=== PATIENT | male | born 1965 | race Caucasian/White ===

== ENCOUNTER 2017-08-28 17:10 | Emergency (ER) | payer OTHER ==
[2017-08-28 18:01] LABS: Absolute Lymphocytes (CBC) 2.4 K/uL (0.7-4.9); Absolute Monocytes 1.1 K/uL (0.1-1.3); Absolute Neutrophil 5.4 K/uL (1.8-8.0); Basophils % 0.1 % (0-1.3); Eosinophils % 6.4 % (0-4.4); Hematocrit 46.5 % (39.6-49.0); Lymphocytes % 25.2 % (15.3-44.8); MCH 32.4 pg (27.0-35.0); MCV 91.2 fL (80-100); MPV 8.2 fL (7.6-11.3); Monocytes % 11.4 % (3.3-12.3)
[2017-08-28 18:11] LABS: Potassium 3.5 mEq/L (3.6-5.0)
[2017-08-28 18:17] LABS: Albumin 4.2 g/dL (3.2-5.5); Bilirubin Direct 0.1 mg/dL (0-0.2); Bilirubin Total 0.8 mg/dL (0.3-1.2); Protein, Total 7.4 g/dL (6.0-8.3)
[2017-08-28 18:22] LABS: Urine Blood NEGATIVE (NEG); Urine Glucose NEGATIVE (NEG); Urine Protein NEGATIVE (NEG); Urine Specific Gravity <1.005 (1.005-1.030)
[2017-08-28 18:40] LABS: Urine Bacteria <20 /HPF (NONE SEEN); Urine Culture Reflex Order NOT NEEDED; Urine RBC <5 /HPF (NONE SEEN)
[2017-08-28] MEDS ORDERED: ONDANSETRON 4 MG/2 ML VIAL ONE (18:40)
[2017-08-28] MEDS ORDERED: MORPHINE 4 MG/ML SYR ONE (18:40)
[2017-08-28] MEDS ORDERED: KETOROLAC 30 MG/ML INJ ONE (20:27)
--- NOTE | 2017-08-28 20:32 | RAD REPORT ---
EXAM DESCRIPTION: CT - Abdomen Pelvis W Contrast - 08/28/2017 8:14 pm CLINICAL HISTORY: Abdominal pain. Left lower quadrant pain x4 months COMPARISON: None. TECHNIQUE: Computed axial tomography of the abdomen and pelvis was obtained. 100 cc Isovue-300 is ad ministered intravenously. Oral contrast was given. All CT scans are performed using dose optimization technique as appropriate and may include automated exposure control or mA/KV adjustment according to patient size. FINDINGS: The liver has a mildly diminished attenuation consistent with fatty infiltration. Spleen, pancreas, and adrenals appear unremarkable. Small renal cysts are present The appendix is normal caliber. Diverticula stem from the colon. Slight stranding is present adjacent to the sigmoid colon The prostate gland is mildly enlarged. Small right inguinal hernia contains fat A small hiatal hernia is present IMPRESSION: Minimal sigmoid diverticulitis
--- NOTE | 2017-08-28 20:55 | ER ---
Nurse's Notes [facility] Name: Saravanan Summers Jr Age: 52 yrs Sex: Male : 1965 Arrival Date: 08/28/2017 Time: 17:10 Bed 20 Private MD: Diagnosis: Diverticulitis of large intestine without perforation or abscess without bleeding Presentation: 08/28 17:17 Presenting complaint: Patient states: LUQ pain intermittent for 4 months that has aj gotten worse recently. Patient reports bloating, and increased indigestion. Transition of care: patient was not received from another setting of care. Onset of symptoms was May 2017. Initial Sepsis Screen: Does the patient meet any 2 criteria? No. Patient's initial sepsis screen is negative. Does the patient have a suspected source of infection? No. Patient's initial sepsis screen is negative. Care prior to arrival: None. 17:17 Method Of Arrival: Ambulatory aj 17:17 Acuity: OMER 3 aj Triage Assessment: 17:18 General: Appears in no apparent distress. uncomfortable, Behavior is calm, cooperative, aj appropriate for age. Pain: Complains of pain in left upper quadrant Pain currently is 8 out of 10 on a pain scale. Neuro: Level of Consciousness is awake, alert, obeys commands, Oriented to person, place, time, situation, Appropriate for age. Respiratory: Airway is patent Trachea midline Respiratory effort is even, unlabored, Respiratory pattern is regular, symmetrical. GI: Abdomen is flat, Reports upper abdominal pain, indigestion, nausea. Derm: Skin is intact, is healthy with good turgor, Skin is pink, warm \\T\\ dry. normal. Historical: - Allergies: 17:18 No Known Allergies; aj - Home Meds: 17:18 None [Active]; aj - PMHx: 17:18 None; aj - PSHx: 17:18 None; aj - Immunization history:: Adult Immunizations up to date. - Social history:: Smoking status: Patient uses tobacco products, smokes one-half pack cigarettes per day. Screenin:19 Abuse screen: Denies threats or abuse. Denies injuries from another. Nutritional aj1 screening: No deficits noted. Tuberculosis screening: No symptoms or risk factors identified. 21:33 Fall Risk None identified. aj1 Assessment: 17:40 General: Appears in no apparent distress. uncomfortable, Behavior is calm, cooperative, aj1 appropriate for age. Pain: Complains of pain in left upper quadrant Pain does not radiate. Pain currently is 8 out of 10 on a pain scale. Neuro: Level of Consciousness is awake, alert, obeys commands, Oriented to person, place, time, situation, Speech is normal, Facial symmetry appears normal. Cardiovascular: Patient's skin is warm and dry. Respiratory: Airway is patent Respiratory effort is even, unlabored, Respiratory pattern is regular, symmetrical. GI: Abdomen is flat, non-distended, Bowel sounds present X 4 quads. Abd is soft X 4 quads Abdomen is tender to palpation in left upper quadrant Reports bloating, indigestion, black tarry stools Patient currently denies diarrhea, vomiting. : No signs and/or symptoms were reported regarding the genitourinary system. EENT: No signs and/or symptoms were reported regarding the EENT system. Derm: No signs and/or symptoms reported regarding the dermatologic system. Skin is pink, warm \\T\\ dry. normal. Musculoskeletal: No signs and/or symptoms reported regarding the musculoskeletal system. Circulation, motion, and sensation intact. 18:40 Reassessment: Patient appears in no apparent distress at this time. No changes from aj1 previously documented assessment. Patient and/or family updated on plan of care and expected duration. Pain level reassessed. Patient is alert, oriented x 3, equal unlabored respirations, skin warm/dry/pink. 19:30 Reassessment: Patient and/or family updated on plan of care and expected duration. Pain aj1 level reassessed. General: Appears in no apparent distress. uncomfortable, Behavior is calm, cooperative, appropriate for age. Pain: Complains of pain in left upper quadrant. Neuro: Level of Consciousness is awake, alert, obeys commands, Oriented to person, place, time, situation, Speech is normal, Facial symmetry appears normal. Cardiovascular: Patient's skin is warm and dry. Respiratory: Airway is patent Respiratory effort is even, unlabored, Respiratory pattern is regular, symmetrical. GI: Abdomen is flat, non-distended. : No signs and/or symptoms were reported regarding the genitourinary system. EENT: No signs and/or symptoms were reported regarding the EENT system. Derm: No signs and/or symptoms reported regarding the dermatologic system. Skin is pink, warm \\T\\ dry. normal. Musculoskeletal: No signs and/or symptoms reported regarding the musculoskeletal system. Circulation, motion, and sensation intact. 20:30 Reassessment: Patient states that he is still hurting. Notified JOSE Haro. Order aj1 recieved. 20:32 Reassessment: Patient appears in no apparent distress at this time. No changes from aj1 previously documented assessment. Patient and/or family updated on plan of care and expected duration. Pain level reassessed. Patient is alert, oriented x 3, equal unlabored respirations, skin warm/dry/pink. 21:31 Reassessment: Patient does not want to stay for IV antibiotics. Patient's comes aj1 out of the room and states "He's leaving right now, if you need to give him stuff he's about to just walk out" Patient states he will picking tech Rx and take that, he has a curfew and he is already an hour late so he needs to leave right now. Vital Signs: 17:18 BP 158 / 100; Pulse 88; Resp 20; Temp 97.8; Pulse Ox 99% on R/A; Weight 92.53 kg; aj Height 5 ft. 11 in. (180.34 cm); Pain 8/10; 18:19 BP 143 / 93; Pulse 64; Resp 18; Pulse Ox 94% on R/A; aj1 20:35 BP 141 / 93; Pulse 93; Resp 18; Pulse Ox 99% ; aj1 21:33 BP 137 / 92; Pulse 88; Resp 18; Pulse Ox 99% ; aj1 17:18 Body Mass Index 28.45 (92.53 kg, 180.34 cm) aj ED Course: 17:10 Patient arrived in ED. as 17:18 Triage completed. aj 17:18 Arm band placed on left wrist. Patient placed in an exam room, on a stretcher. aj 17:24 Jesus Garcia MD is Attending Physician. gs 17:36 Sharon Quick, MARLENE is Primary Nurse. aj1 17:38 Urine collected: clean catch specimen, clear. mh5 17:39 Patient has correct armband on for positive identification. Placed in gown. Bed in low mh5 position. Side rails up X 1. Adult w/ patient. Warm blanket given. Pulse ox on. NIBP on. 17:55 Inserted saline lock: 18 gauge in right antecubital area, using aseptic technique. aj1 Blood collected. 18:08 Urine Dipstick-Ancillary [facility] 18:08 Urine Dipstick--Ancillary (enter results) Sent[facility] 18:19 Evans Duque PA is PHCP. cp 18:19 Jesus Garcia MD is Attending Physician. cp 18:19 No provider procedures requiring assistance completed. aj1 20:11 Patient moved to NE via wheelchair. nj 20:14 CT completed. Patient tolerated procedure well. Patient moved back from NE. nj 20:14 CT Abd/Pelvis - W/Contrast: may give oral contrast In Process Unspecified. EDMS 20:54 Keith Baldwin MD is Referral Physician. cp 21:34 IV discontinued, intact, bleeding controlled, No redness/swelling at site. Pressure aj1 dressing applied. Administered Medications: 18:48 Drug: morphine 4 mg Route: IVP; Site: right antecubital; aj1 20:31 Follow up: Response: No adverse reaction aj1 18:48 Drug: Zofran 4 mg Route: IVP; Site: right antecubital; aj1 20:31 Follow up: Response: No adverse reaction aj1 20:30 Drug: TORadol 30 mg Route: IVP; Site: right antecubital; aj1 21:30 Follow up: Response: No adverse reaction aj1 21:27 Drug: Ciprofloxacin 500 mg Route: PO; aj1 21:30 Follow up: Response: No adverse reaction aj1 21:28 Drug: Tylenol #3 (300 mg-30 mg) 2 tabs Route: PO; aj1 21:31 Follow up: Response: No adverse reaction aj1 21:30 Not Given (Patient Refused): metroNIDAZOLE 500 mg 100 ml IVPB once over 30 mins aj1 21:30 Drug: Potassium Effervescent Tablet 25 mEq Route: PO; aj1 21:31 Follow up: Response: No adverse reaction aj1 Outcome: 20:54 Discharge ordered by . cp 21:34 Discharged to home ambulatory. aj1 21:34 Condition: stable 21:34 Discharge instructions given to patient, Instructed on discharge instructions, follow up and referral plans. no drinking with medication, no driving heavy equipment, medication usage, Demonstrated understanding of instructions, Prescriptions given X 4. 21:34 Patient left the ED. aj1 Signatures: Dispatcher [employer] Sharon Shelby RN RN aj1 Kellie Heller, Caryn Solano RN, Corey, PA PA cp Jordan, Nathan nj Martinez, Maria [facility] Jesus Garcia MD MD
--- NOTE | 2017-08-28 20:56 | EDPHYS ---
Physician Documentation [facility] Name: Saravanan Summers Jr Age: 52 yrs Sex: Male : 1965 Arrival Date: 08/28/2017 Time: 17:10 Bed 20 Private MD: ED Physician Jesus Garcia HPI: 08/28 18:30 This 52 yrs old Male presents to ER via Ambulatory with complaints of cp Abdominal Pain. 18:30 The patient presents with abdominal pain in the left upper quadrant. cp 18:30 Onset: The symptoms/episode began/occurred gradually. cp 18:30 The symptoms do not radiate. Associated signs and symptoms: Pertinent negatives: blood cp in stools, constipation, diarrhea, fever, testicular pain, vomiting. Historical: - Allergies: 17:18 No Known Allergies; aj - Home Meds: 17:18 None [Active]; aj - PMHx: 17:18 None; aj - PSHx: 17:18 None; aj - Immunization history:: Adult Immunizations up to date. - Social history:: Smoking status: Patient uses tobacco products, smokes one-half pack cigarettes per day. ROS: 18:40 Constitutional: Negative for body aches, chills, fever, poor PO intake. cp 18:40 Eyes: Negative for injury, pain, redness, and discharge. cp 18:40 ENT: Negative for drainage from ear(s), ear pain, sore throat, difficulty swallowing, difficulty handling secretions. 18:40 Cardiovascular: Negative for chest pain, edema, palpitations. 18:40 Respiratory: Negative for cough, shortness of breath, wheezing. 18:40 Abdomen/GI: Positive for abdominal pain, nausea, Negative for vomiting, diarrhea, constipation, anorexia, black/tarry stool, rectal bleeding. 18:40 Back: Negative for pain at rest, pain with movement, radiated pain. 18:40 Skin: Negative for cellulitis, rash. 18:40 Neuro: Negative for altered mental status, headache, weakness. 18:40 All other systems are negative. Exam: 18:45 Constitutional: The patient appears in no acute distress, alert, awake, cp non-diaphoretic, non-toxic, well developed, well nourished. 18:45 Head/Face: Normocephalic, atraumatic. Eyes: Pupils equal round and reactive to light, cp extra-ocular motions intact. Lids and lashes normal. Conjunctiva and sclera are non-icteric and not injected. Cornea within normal limits. Periorbital areas with no swelling, redness, or edema. ENT: Nares patent. No nasal discharge, no septal abnormalities noted. Tympanic membranes are normal and external auditory canals are clear. Oropharynx with no redness, swelling, or masses, exudates, or evidence of obstruction, uvula midline. Mucous membranes moist. Neck: Trachea midline, no thyromegaly or masses palpated, and no cervical lymphadenopathy. Supple, full range of motion without nuchal rigidity, or vertebral point tenderness. No Meningismus. Chest/axilla: Normal chest wall appearance and motion. Nontender with no deformity. No lesions are appreciated. 18:45 Cardiovascular: Rate: normal, Rhythm: regular, Edema: is not appreciated, JVD: is not appreciated. 18:45 Respiratory: the patient does not display signs of respiratory distress, Respirations: normal, no use of accessory muscles, no retractions, no splinting, no tachypnea, labored breathing, is not present, Breath sounds: are clear throughout, no decreased breath sounds, no stridor, no wheezing. 18:45 Abdomen/GI: Inspection: abdomen appears normal, Bowel sounds: active, all quadrants, Palpation: soft, in all quadrants, moderate abdominal tenderness, in the left upper quadrant, rebound tenderness, is not appreciated, voluntary guarding, is not appreciated, involuntary guarding, is not appreciated. 18:45 Back: pain, is absent, ROM is normal. 18:45 Skin: cellulitis, is not appreciated, no rash present. 18:45 Neuro: Orientation: to person, place \T\ time. Mentation: is normal, Cerebellar function: is grossly normal, Motor: moves all fours, strength is normal, Sensation: no obvious gross deficits. Vital Signs: 17:18 BP 158 / 100; Pulse 88; Resp 20; Temp 97.8; Pulse Ox 99% on R/A; Weight 92.53 kg; aj Height 5 ft. 11 in. (180.34 cm); Pain 8/10; 18:19 BP 143 / 93; Pulse 64; Resp 18; Pulse Ox 94% on R/A; aj1 20:35 BP 141 / 93; Pulse 93; Resp 18; Pulse Ox 99% ; aj1 21:33 BP 137 / 92; Pulse 88; Resp 18; Pulse Ox 99% ; aj1 17:18 Body Mass Index 28.45 (92.53 kg, 180.34 cm) aj MDM: 18:20 Patient medically screened. cp 19:00 Differential diagnosis: bowel obstruction, cholecystitis, Cholelithiasis, cp diverticulitis, pancreatitis, Pyelonephritis, Ureterolithiasis, urinary tract infection. 20:52 Data reviewed: vital signs, nurses notes, lab test result(s), radiologic studies, CT cp scan, and as a result, I will discharge patient. 20:52 Counseling: I had a detailed discussion with the patient and/or guardian regarding: the cp historical points, exam findings, and any diagnostic results supporting the discharge/admit diagnosis, lab results, radiology results, the need for outpatient follow up, a sales review clerk, to return to the emergency department if symptoms worsen or persist or if there are any questions or concerns that arise at home. 08/28 17:40 Order name: Urine Dipstick--Ancillary (enter results) ag 08/28 17:40 Order name: Urine Dipstick-Ancillary; Complete Time: 18:35 EDMS 08/28 17:41 Order name: Basic Metabolic Panel; Complete Time: 18:35 08/28 18:35 Interpretation: Normal except: K 3.5; GFR 78. 08/28 17:41 Order name: CBC with Diff; Complete Time: 18:35 08/28 20:25 Interpretation: Normal except: MCV 91.2; EOSINOPHIL % 6.4; EOSA 0.6. 08/28 17:41 Order name: Hepatic Function; Complete Time: 18:35 08/28 17:41 Order name: Lipase; Complete Time: 18:35 08/28 17:41 Order name: Urine Microscopic Only; Complete Time: 20:24 08/28 20:24 Interpretation: Reviewed. 08/28 18:36 Order name: CT Abd/Pelvis - W/Contrast: may give oral contrast; Complete Time: 20:39 cp 08/28 17:41 Order name: IV Saline Lock; Complete Time: 17:53 08/28 17:41 Order name: Labs collected and sent; Complete Time: 17:53 08/28 20:40 Order name: PO challenge; Complete Time: 21:30 cp Administered Medications: 18:48 Drug: morphine 4 mg Route: IVP; Site: right antecubital; aj1 20:31 Follow up: Response: No adverse reaction aj1 18:48 Drug: Zofran 4 mg Route: IVP; Site: right antecubital; aj1 20:31 Follow up: Response: No adverse reaction aj1 20:30 Drug: TORadol 30 mg Route: IVP; Site: right antecubital; aj1 21:30 Follow up: Response: No adverse reaction aj1 21:27 Drug: Ciprofloxacin 500 mg Route: PO; aj1 21:30 Follow up: Response: No adverse reaction aj1 21:28 Drug: Tylenol #3 (300 mg-30 mg) 2 tabs Route: PO; aj1 21:31 Follow up: Response: No adverse reaction aj1 21:30 Not Given (Patient Refused): metroNIDAZOLE 500 mg 100 ml IVPB once over 30 mins aj1 21:30 Drug: Potassium Effervescent Tablet 25 mEq Route: PO; aj1 21:31 Follow up: Response: No adverse reaction aj1 Disposition: 08/28/17 20:54 Discharged to Home. Impression: Diverticulitis of large intestine without perforation or abscess without bleeding. - Condition is Stable. - Discharge Instructions: Diverticulitis. - Prescriptions for Tylenol- Codeine #3 300-30 mg Oral Tablet - take 2 tablets by ORAL route every 6 hours As needed; 15 tablet. Zofran 4 mg Oral Tablet - take 1 tablet by ORAL route every 12 hours As needed; 20 tablet. Cipro 500 mg Oral Tablet - take 1 tablet by ORAL route every 12 hours for 10 days; 20 tablet. Metronidazole 500 mg Oral Tablet - take 1 tablet by ORAL route every 8 hours; 30 tablet. - Medication Reconciliation Form, Thank You Letter, Antibiotic Education, Prescription Opioid Use form. - Follow up: Keith Baldwin MD; When: 1 week; Reason: Recheck today's complaints. - Problem is new. - Symptoms have improved. Addendum: 08/31/2017 19:00 Co-signature as Attending Physician, Jesus Garcia MD. g s Signatures: Dispatcher [employer] Sharon Shelby RN RN aj1 Kellie Heller RN RN Evans Coleman PA PA Jesus Philippe MD MD Corrections: (The following items were deleted from the chart) 08/28 17:41 17:41 Urine Dipstick-Ancillary ordered. [facility] 20:25 18:35 Normal except: MCV 91.2; EOSINOPHIL % 6.4. cp cp
[2017-08-28] MEDS ORDERED: CIPROFLOXACIN HCL 500 MG TAB ONE (21:12)
[2017-08-28] MEDS ORDERED: CODEINE 30MG/APAP 300MG TAB ONE (21:12)
[2017-08-28] MEDS ORDERED: POTASSIUM 25 MEQ EFFERV TAB ONE (21:29)
[2017-08-28 21:39] VITALS: TEMP 97.8
[2017-08-28 21:41] VITALS: O2SAT 99
[2017-08-28 21:42] VITALS: BP 137/92
== END 2017-08-28 21:34 | disposition home or self-care (01) ==
LOC: ER 17:10
DX: K57.32 Diverticulitis of large intestine without perforation or abscess without bleeding (principal); F17.210 Nicotine dependence, cigarettes, uncomplicated
CPT/HCPCS: 36415; 74177; 80048; 80076; 81003; 81015; 83690; 85025; 96374; 96375; 99284; J2405; Q9967

== ENCOUNTER 2018-11-11 21:30 | Emergency (ER) | payer OTHER ==
--- OUTSIDE RECORDS SUMMARY | 2018-11-11 21:32 | XMS REPORT ---
:1965 Author Organization [facility] Address [address] [place] [address] Dr. Paez [address] [place] [id number] Care Team Providers Name Role Phone Unavailable Unavailable Unavailable Problems This patient has no known problems. Allergies, Adverse Reactions, Alerts This patient has no known allergies or adverse reactions. Medications This patient has no known medications.
[2018-11-11] MEDS ORDERED: HYDROCODONE/APAP 10/325 TAB ONE (22:12)
[2018-11-11] MEDS ORDERED: MORPHINE 4 MG/ML SYR ONE (23:46)
[2018-11-11 23:54] LABS: Basophils % 0.8 % (0-1.3); Eosinophils % 4.1 % (0-4.4); Hematocrit 46.3 % (39.6-49.0); Lymphocytes % 17.8 % (15.3-44.8); MPV 8.3 fL (7.6-11.3); RBC Red Blood Cell Count 4.88 M/uL (4.33-5.43)
[2018-11-12 00:12] LABS: Potassium 3.6 mmol/L (3.5-5.1)
[2018-11-12 00:17] LABS: Protime INR 1.01
--- NOTE | 2018-11-12 01:29 | ER ---
Nurse's Notes [facility] Name: Saravanan Summers Jr Age: 53 yrs Sex: Male : 1965 Arrival Date: 11/11/2018 Time: 21:34 Bed 28 Private MD: Diagnosis: left femoral artery occlusion;left popliteal artery occlusion Presentation: 11/11 21:59 Presenting complaint: Patient states: left inner thigh pain for about a week, went to fu urgent care and told him to go to ER. Transition of care: patient was not received from another setting of care. Onset of symptoms. Risk Assessment: Do you want to hurt yourself or someone else? Patient reports no desire to harm self or others. Initial Sepsis Screen: Does the patient meet any 2 criteria? No. Patient's initial sepsis screen is negative. Does the patient have a suspected source of infection? No. Patient's initial sepsis screen is negative. Care prior to arrival: None. 21:59 Method Of Arrival: Wheelchair fu 21:59 Acuity: OMER 3 fc Historical: - Allergies: 22:05 No Known Allergies; fu - PMHx: 22:04 Anxiety; fu 22:05 Hypertension; fu - Social history:: Smoking status: Patient uses tobacco products, smokes one pack cigarettes per day. - Ebola Screening: : No symptoms or risks identified at this time. Screenin:13 Abuse screen: Denies threats or abuse. Nutritional screening: No deficits noted. fu Tuberculosis screening: No symptoms or risk factors identified. Fall Risk None identified. Assessment: 22:07 General: Appears uncomfortable, Behavior is cooperative, appropriate for age, Denies fu fever, fatigue, chills. Pain: Complains of pain in medial aspect of left thigh Pain does not radiate. Pain currently is 10 out of 10 on a pain scale. Quality of pain is described as sharp, Pain began about a week ago. Is Alleviated by Aggravated by increased activity. Neuro: Level of Consciousness is awake, alert, obeys commands, Reports. Neuro:. Cardiovascular: Denies chest pain. Respiratory: Airway is patent Breath sounds are clear bilaterally. 23:38 Reassessment: Patient is alert, oriented x 3, equal unlabored respirations, skin fu warm/dry/pink. Pain: Complains of pain in medial aspect of left thigh Pain currently is 10 out of 10 on a pain scale. 07/11 01:00 Reassessment: Patient is alert, oriented x 3, equal unlabored respirations, skin fu warm/dry/pink. Pain: Complains of pain in medial aspect of left thigh Pain currently is 4 out of 10 on a pain scale. Vital Signs: 11/11 22:05 BP 145 / 99; Pulse 107; Resp 18; Temp 98.8; Pulse Ox 100% on R/A; Pain 10/10; fu 22:14 Weight 97.98 kg; Height 5 ft. 11 in. (180.34 cm); fu 23:15 BP 145 / 88; Pulse 70; Resp 11; Pulse Ox 99% ; Pain 10/10; fu 11/12 00:00 BP 146 / 100; Pulse 72; Resp 22; Pulse Ox 98% ; Pain 4/10; fu 11/11 22:14 Body Mass Index 30.13 (97.98 kg, 180.34 cm) fu ED Course: 11/11 21:34 Patient arrived in ED. am2 21:37 Chriss Hart, MARLENE is Primary Nurse. fu 21:39 Caity Parson FNP-C is PHCP. kb 21:39 [place] Artis MD is Attending Physician. kb 22:02 Triage completed. fu 22:12 Patient has correct armband on for positive identification. Placed in gown. Bed in low fu position. 22:12 Pillow given. Verbal reassurance given. jp3 22:35 Doppler to Leg ankle for pulse: 90 bpm and marked area that pulse was found. Provider jp3 notified. 22:51 US Extremity Venous Unilateral Ltd In Process Unspecified. EDMS 22:51 US LE Artery Uni Ltd In Process Unspecified. EDMS 22:53 Inserted saline lock: 20 gauge in right antecubital area, using aseptic technique. fu 23:00 EKG done, by ED staff, reviewed by Caity NOE. Patient maintains SpO2 jp3 saturation greater than 95% on room air. 11/12 01:20 No provider procedures requiring assistance completed. fu 01:45 IV discontinued, intact, bleeding controlled, No redness/swelling at site. Pressure fu dressing applied. Administered Medications: 11/11 22:29 Drug: Babb 10 mg-325 mg 1 tabs Route: PO; fu 23:35 Follow up: Response: Pain is unchanged, physician notified fu 23:34 Drug: morphine 4 mg Route: IVP; Site: right antecubital; fu 11/12 00:15 Follow up: Response: Pain is decreased fu Outcome: 01:29 Discharge ordered by . alvino 02:00 Discharged to home ambulatory. fu 02:00 Condition: improved 02:00 Discharge instructions given to patient, Instructed on discharge instructions, follow up and referral plans. need to see doctor in the office in the morning. Demonstrated understanding of instructions. 02:15 Patient left the ED. fu Signatures: Dispatcher [employer] EDMS Caity Parson, SAMY-C [employer] HOME ELECT[employer]ICAL [employer]EM[employer]-Alea Chan RN RN Kellie Orourke am2 Chriss Hart, RN RN Bud Adam jp3 Corrections: (The following items were deleted from the chart) 11/11 22:05 22:03 Allergies: No Known Allergies; fu fu 22:45 21:59 Acuity: OMER [address] [facility] 23:42 23:15 BP 143 / 88; Pulse 69bpm; Resp 16bpm; Pulse Ox 99% RA; Pain 02/11; fu fu
--- NOTE | 2018-11-12 01:29 | EDPHYS ---
Physician Documentation [facility] Name: Saravanan Summers Jr Age: 53 yrs Sex: Male : 1965 Arrival Date: 11/11/2018 Time: 21:34 Bed 28 Private MD: ED Physician [place] Artis HPI: 11/11 22:33 This 53 yrs old Male presents to ER via Wheelchair with complaints of Leg kb Pain. 22:33 The patient presents with pain, tenderness. The complaints affect the medial aspect of kb left thigh. Context: The problem was sustained at an unknown site, resulted from an unknown cause, the patient can fully bear weight, the patient is able to ambulate. Onset: The symptoms/episode began/occurred 1 week(s) ago. Modifying factors: The symptoms are alleviated by nothing. the symptoms are aggravated by palpation. Associated signs and symptoms: The patient has no apparent associated signs or symptoms. Treatment prior to arrival includes: no previous treatment. Severity of symptoms: At their worst the symptoms were moderate, in the emergency department the symptoms are unchanged. The patient has not experienced similar symptoms in the past. The patient has been recently seen by a physician:. Pt reports left medial thigh pain that started a week ago. Was seen at [facility] and ER for this when it started and had negative US done. States pain has gotten worse daily. Historical: - Allergies: 22:05 No Known Allergies; fu - PMHx: 22:04 Anxiety; fu 22:05 Hypertension; fu - Social history:: Smoking status: Patient uses tobacco products, smokes one pack cigarettes per day. - Ebola Screening: : No symptoms or risks identified at this time. ROS: 22:32 Constitutional: Negative for fever, chills, and weight loss, Cardiovascular: Negative kb for chest pain, palpitations, and edema, Respiratory: Negative for shortness of breath, cough, wheezing, and pleuritic chest pain, Abdomen/GI: Negative for abdominal pain, nausea, vomiting, diarrhea, and constipation, Back: Negative for injury and pain, : Negative for injury, bleeding, discharge, and swelling, Skin: Negative for injury, rash, and discoloration, Neuro: Negative for headache, weakness, numbness, tingling, and seizure. 22:32 MS/extremity: Positive for pain, tenderness, of the medial aspect of left thigh. Exam: 22:31 Constitutional: This is a well developed, well nourished patient who is awake, alert, kb and in no acute distress. Head/Face: Normocephalic, atraumatic. Chest/axilla: Normal chest wall appearance and motion. Nontender with no deformity. No lesions are appreciated. Cardiovascular: Regular rate and rhythm with a normal S1 and S2. No gallops, murmurs, or rubs. Normal PMI, no JVD. No pulse deficits. Respiratory: Lungs have equal breath sounds bilaterally, clear to auscultation and percussion. No rales, rhonchi or wheezes noted. No increased work of breathing, no retractions or nasal flaring. Abdomen/GI: Soft, non-tender, with normal bowel sounds. No distension or tympany. No guarding or rebound. No evidence of tenderness throughout. Back: No spinal tenderness. No costovertebral tenderness. Full range of motion. Skin: Warm, dry with normal turgor. Normal color with no rashes, no lesions, and no evidence of cellulitis. Neuro: Awake and alert, GCS 15, oriented to person, place, time, and situation. Cranial nerves II-XII grossly intact. Motor strength 5/5 in all extremities. Sensory grossly intact. Cerebellar exam normal. Normal gait. 22:31 Musculoskeletal/extremity: Extremities: grossly normal except: noted in the medial aspect of left thigh: pain, tenderness, ROM: intact in all extremities, Circulation is intact in all extremities. Sensation intact. Weight bearing: able to fully bear weight. Vital Signs: 22:05 BP 145 / 99; Pulse 107; Resp 18; Temp 98.8; Pulse Ox 100% on R/A; Pain 10/10; fu 22:14 Weight 97.98 kg; Height 5 ft. 11 in. (180.34 cm); fu 23:15 BP 145 / 88; Pulse 70; Resp 11; Pulse Ox 99% ; Pain 1010; fu 11/12 00:00 BP 146 / 100; Pulse 72; Resp 22; Pulse Ox 98% ; Pain 4/10; fu 11/11 22:14 Body Mass Index 30.13 (97.98 kg, 180.34 cm) fu MDM: 11/11 21:40 Patient medically screened. kb 22:32 Data reviewed: vital signs, nurses notes. Data interpreted: Pulse oximetry: on room air kb is 100 %. Interpretation: normal. 11/12 01:10 ED course: transfer initiated to [facility] for vascular surgeon.. kb 01:23 Counseling: I had a detailed discussion with the patient and/or guardian regarding: the kb historical points, exam findings, and any diagnostic results supporting the discharge/admit diagnosis, lab results, radiology results, the need for outpatient follow up, vascular, to return to the emergency department if symptoms worsen or persist or if there are any questions or concerns that arise at home. ED course: Discussed pt condition and diagnostics with Dr Lazcano ([phone]) with vascular at [facility]. Dr Lazcano recommends outpatient follow up for chronic arterial occlusions. Does not require emergent transfer. 11/11 22:23 Order name: Protime (+inr); Complete Time: 00:21 kb 11/11 22:23 Order name: Ptt, Activated; Complete Time: 00:21 kb 11/11 21:49 Order name: Extremity Venous Unilateral Ltd kb 11/11 22:23 Order name: LE Artery Uni Ltd kb 11/11 22:23 Order name: CBC with Diff; Complete Time: 00:07 kb 11/11 22:23 Order name: Basic Metabolic Panel; Complete Time: 00:19 kb 11/11 22:24 Order name: IV Start; Complete Time: 22:38 kb 11/11 22:24 Order name: EKG; Complete Time: 22:24 kb 11/11 22:24 Order name: EKG - Nurse/Tech; Complete Time: 23:53 kb Administered Medications: 11/11 22:29 Drug: [place] 10 mg-325 mg 1 tabs Route: PO; fu 23:35 Follow up: Response: Pain is unchanged, physician notified fu 23:34 Drug: morphine 4 mg Route: IVP; Site: right antecubital; fu 11/12 00:15 Follow up: Response: Pain is decreased fu Disposition: 05:56 Co-signature as Attending Physician, [place] Artis MD. ma2 Disposition: 11/12/18 01:29 Discharged to Home. Impression: left femoral artery occlusion, left popliteal artery occlusion. - Condition is Stable. - Discharge Instructions: Peripheral Vascular Disease, [id number]. - Medication Reconciliation Form, Thank You Letter, Antibiotic Education, Prescription Opioid Use form. - Follow up: Private Physician; When: 2 - 3 days; Reason: Recheck today's complaints, Continuance of care, Re-evaluation by your physician. Follow up: Emergency Department; When: As needed; Reason: Worsening of condition. Signatures: Dispatcher [employer] EDMS Caity aPrson, Chriss Barclay RN RN [place] Artis MD MD ma2 Corrections: (The following items were deleted from the chart) 11/11 22:05 22:03 Allergies: No Known Allergies; fu fu 11/12 01:33 01:23 ED course: Discussed pt condition and diagnostics with Dr Lazcano with vascular at [facility]. Dr Lazcano recommends outpatient follow up for chronic arterial occlusions. Does not require emergent transfer. 02:15 01:29 11/12/2018 01:29 Discharged to Home. Impression: left femoral artery occlusion; fu left popliteal artery occlusion. Condition is Stable. Forms are Medication Reconciliation Form, Thank You Letter, Antibiotic Education, Prescription Opioid Use. Follow up: Private Physician; When: 2 - 3 days; Reason: Recheck today's complaints, Continuance of care, Re-evaluation by your physician. Follow up: Emergency Department; When: As needed; Reason: Worsening of condition. kb
[2018-11-12 02:36] VITALS: TEMP 98.8
[2018-11-12 02:38] VITALS: BP 146/100; O2SAT 98
--- NOTE | 2018-11-12 07:36 | EKG ---
Test Date: 2018-11-11 Test Time: 22:58:27 Muck Farmer: MADDY MEASUREMENT RESULTS: Intervals: Rate: 75 MT: 170 QRSD: 90 QT: 372 QTc: 415 [place]: P: 64 MT: 170 QRS: 54 T: 52 INTERPRETIVE STATEMENTS: Normal sinus rhythm Normal ECG Compared to ECG 08/04/2011 10:45:57 No significant changes Electronically Signed On 11-12-18 07:35:16 CDT by Salinas Trotter
--- NOTE | 2018-11-12 10:38 | RAD REPORT ---
EXAM DESCRIPTION: US - Lower Extremity Artery Uni Ltd - 11/11/2018 10:51 pm` CLINICAL HISTORY: PAIN COMPARISON: None. TECHNIQUE: US LOWER EXTREMITY ARTERIES LIMITED/UNILATERAL/FOLLOW UP, US EXTREMITY VEINS UNILATERAL o n 11/11/2018 10:23 PM CDT FINDINGS: Left common femoral, femoral and popliteal veins are normally compressible with patent kevin w and augmentation. Left calf veins are patent. Left common femoral artery is patent with peak systol ic flow of 77 cm/s. There is only occasional flow throughout the left femoral artery and popliteal ar corinna post of the vessels being completely occluded. There is negligible flow within the runoff vessel s. IMPRESSION: Nearly complete multiple levels of occlusions throughout the left femoral artery and pop liteal arteries with trace flow to the left foot. No DVT. Electronically signed by: Darell Boogie MD 11/11/2018 11:12 PM CDT Due to temporary technical issues with the PACS/Fluency reporting system, reports are being signed b y the in house radiologist as a courtesy to ensure prompt reporting. The interpreting radiologist is fully responsible for the content of the report.
--- NOTE | 2018-11-12 10:46 | RAD REPORT ---
EXAM DESCRIPTION: US - Extremity Venous Uni Ltd - 11/12/2018 4:37 am CLINICAL HISTORY: PAIN COMPARISON: None. TECHNIQUE: US LOWER EXTREMITY ARTERIES LIMITED/UNILATERAL/FOLLOW UP, US EXTREMITY VEINS UNILATERAL o n 11/11/2018 10:23 PM CDT FINDINGS: Left common femoral, femoral and popliteal veins are normally compressible with patent kevin w and augmentation. Left calf veins are patent. Left common femoral artery is patent with peak systol ic flow of 77 cm/s. There is only occasional flow throughout the left femoral artery and popliteal ar corinna post of the vessels being completely occluded. There is negligible flow within the runoff vessel s. IMPRESSION: Nearly complete multiple levels of occlusions throughout the left femoral artery and pop liteal arteries with trace flow to the left foot. No DVT. Electronically signed by: Darell Boogie MD 11/11/2018 11:12 PM CDT Due to temporary technical issues with the PACS/Fluency reporting system, reports are being signed b y the in house radiologist as a courtesy to ensure prompt reporting. The interpreting radiologist is fully responsible for the content of the report.
== END 2018-11-12 02:15 | disposition home or self-care (01) ==
LOC: ER 21:30
DX: I74.3 Embolism and thrombosis of arteries of the lower extremities (principal); I10 Essential (primary) hypertension; F17.210 Nicotine dependence, cigarettes, uncomplicated
CPT/HCPCS: 36415; 80048; 85025; 85610; 85730; 93005; 93926; 93971; 96374; 99284